=== PATIENT | male | born 1970 | race African-American/Black ===

== ENCOUNTER 2019-08-08 06:27 | Observation (INO) | payer SELFPAY ==
[2019-08-08 06:55] LABS: Absolute Lymphocytes (CBC) 1.7 K/uL (0.7-4.9); Basophils % 0.5 % (0-1.3); Hematocrit 40.7 % (39.6-49.0); Lymphocytes % 27.9 % (15.3-44.8); MPV 7.2 fL (7.6-11.3); RBC Red Blood Cell Count 4.59 M/uL (4.33-5.43)
[2019-08-08 06:58] LABS: Protime INR 0.97
[2019-08-08] MEDS ORDERED: ASPIRIN 81 MG CHEWABLE TABLET ONE (07:09)
[2019-08-08 07:41] LABS: ALT/SGPT 17 U/L (12-78); AST/SGOT 12 U/L (15-37); Albumin 3.8 g/dL (3.4-5.0); Alkaline Phosphatase 66 U/L (45-117); BUN Blood Urea Nitrogen 19 mg/dL (7-18); Bicarbonate 27 mmol/L (21-32); Bilirubin Direct 0.2 mg/dL (0-0.2); Glucose Level 100 mg/dL (74-106); Magnesium 2.1 mg/dL (1.8-2.4); NT PRO-BNP 58 pg/mL (<125); Potassium 3.6 mmol/L (3.5-5.1); Protein, Total 7.8 g/dL (6.4-8.2); Sodium Level 141 mmol/L (136-145); Troponin (Emerg Dept Use Only) < 0.02 ng/mL (0.0-0.045)
--- NOTE | 2019-08-08 08:29 | ER ---
Nurse's Notes [facility] Name: Martinez Bazzi Age: 48 yrs Sex: Male : 1970 Arrival Date: 08/08/2019 Time: 06:30 Bed 14 Private MD: Diagnosis: Chest pain, unspecified Presentation: 08/07 06:42 Chief complaint: Patient states: Dull chest pain that began on Sunday, some radiating lp1 to left shoulder; States able to continue ADL's but dull pain that comes and goes, radiating to back; States this morning chest pain woke him from sleep about 0330. Coronavirus screen: Patient denies fever greater than 100.4F, cough, shortness of breath, or difficulty breathing. Proceed with normal triage process. Ebola Screen: No symptoms or risks identified at this time. Initial Sepsis Screen: Does the patient meet any 2 criteria? No. Patient's initial sepsis screen is negative. Does the patient have a suspected source of infection? No. Patient's initial sepsis screen is negative. Risk Assessment: Do you want to hurt yourself or someone else? Patient reports no desire to harm self or others. Onset of symptoms was August 03, 2019. 06:42 Method Of Arrival: Ambulatory lp1 06:42 Acuity: BHARGAVI 3 lp1 Historical: - Allergies: 06:48 No Known Allergies; lp1 - Home Meds: 06:48 None [Active]; lp1 - PMHx: 06:48 Heart Murmur; lp1 - PSHx: 06:48 None; lp1 - Immunization history:: Adult Immunizations up to date. - Social history:: Smoking status: Patient reports the use of cigarette tobacco products, smokes one-half pack cigarettes per day, Patient uses alcohol, on a daily basis. States about [address], marijuana. Screenin:48 Abuse screen: Denies threats or abuse. Denies injuries from another. Nutritional lp1 screening: No deficits noted. Tuberculosis screening: No symptoms or risk factors identified. Fall Risk None identified. Assessment: 06:40 General: Appears in no apparent distress. uncomfortable, Behavior is calm, cooperative, jb4 appropriate for age. Pain: Complains of pain in chest Pain does not radiate. Pain currently is 4 out of 10 on a pain scale. Quality of pain is described as dull, Pain began 1 day ago. Is continuous. Neuro: Level of Consciousness is awake, alert, obeys commands, Oriented to person, place, time, situation. Cardiovascular: Patient's skin is warm and dry. Rhythm is sinus rhythm. Respiratory: Airway is patent Respiratory effort is even, unlabored, Respiratory pattern is regular, symmetrical. GI: No signs and/or symptoms were reported involving the gastrointestinal system. : No signs and/or symptoms were reported regarding the genitourinary system. EENT: No signs and/or symptoms were reported regarding the EENT system. Derm: Skin is intact, Skin is dry, Skin is normal, Skin temperature is warm. Musculoskeletal: Circulation, motion, and sensation intact. Range of motion: intact in all extremities. 07:11 Reassessment: Patient appears in no apparent distress at this time. Patient and/or ph family updated on plan of care and expected duration. Pain level reassessed. Patient is alert, oriented x 3, equal unlabored respirations, skin warm/dry/pink. Pt rates pain 4/10 at this time, denies SOB or nausea, states that he does not wantpain medication at this time, awaiting lab and CXR results, will continue to monitor. 08:30 Reassessment: Patient appears in no apparent distress at this time. No changes from ph previously documented assessment. Patient and/or family updated on plan of care and expected duration. Pain level reassessed. Patient is alert, oriented x 3, equal unlabored respirations, skin warm/dry/pink. 11:02 Reassessment: Patient appears in no apparent distress at this time. No changes from ph previously documented assessment. Patient and/or family updated on plan of care and expected duration. Pain level reassessed. Patient is alert, oriented x 3, equal unlabored respirations, skin warm/dry/pink. Report called to second floor. Vital Signs: 06:40 Temp 98.7(O); jb4 06:42 BP 160 / 106; Pulse 70; Resp 18; Pulse Ox 100% on R/A; Weight 104.33 kg; Height 6 ft. 3 lp1 in. (190.50 cm); Pain 5/10; 07:11 BP 138 / 80; Pulse 67; Resp 18; Pulse Ox 100% on R/A; Pain 4/10; ph 08:17 BP 134 / 88; Pulse 56; Resp 18; Pulse Ox 99% on R/A; ph 09:00 BP 129 / 84; Pulse 56; Resp 16; Pulse Ox 100% on R/A; ph 10:00 BP 138 / 82; Pulse 58; Resp 18; Pulse Ox 100% on R/A; ph 11:00 BP 132 / 78; Pulse 54; Resp 18; Pulse Ox 100% on R/A; ph 06:42 Body Mass Index 28.75 (104.33 kg, 190.50 cm) lp1 Vitals: 08:17 Cardiac Rhythm Assessment Sinus mallika. ph ED Course: 06:30 Patient arrived in ED. ds1 06:31 Yves Carl PA is PHCP. cp 06:31 Bobby Espinal MD is Attending Physician. cp 06:40 EKG done, by ED staff, reviewed by Yves MACHADO. rr5 06:41 quality assurance monitor body on. Pulse ox on. NIBP on. rr5 06:45 Initial lab(s) drawn, by me, sent to lab. Inserted saline lock: 18 gauge in right jb4 wrist, using aseptic technique. Blood collected. Patient maintains SpO2 saturation greater than 95% on room air. 06:47 Triage completed. lp1 06:48 Arm band placed on. lp1 06:48 Patient has correct armband on for positive identification. lp1 06:54 XRAY Chest (1 view) In Process Unspecified. EDMS 07:10 Hoa Reveles, RN is Primary Nurse. ph 07:23 Damien Day MD is Attending Physician. cp 08:27 Stacey Chavarria MD is Hospitalizing Provider. cp 09:39 Repeat lab(s) drawn. by me, sent to lab. dh3 11:01 No provider procedures requiring assistance completed. Patient admitted, IV remains in ph place. Administered Medications: 07:12 Drug: Aspirin Chewable Tablet 324 mg Route: PO; jb4 11:03 Follow up: Response: No adverse reaction ph 11:04 Not Given (Patient Refused): morphine 2 mg IVP once; RASS on ADMIN: Combtv4, Very ph Agttd3, Agttd2, Rstlss1, AlertClm0, Drwsy-1, Lt Sdtn-2, Mod Sdtn-3, Dp Sdtn-4, UnArsble-5 11:06 Not Given (Patient Refused): morphine 2 mg IM once; RASS on ADMIN: Combtv4, Very ph Agttd3, Agttd2, Rstlss1, AlertClm0, Drwsy-1, Lt Sdtn-2, Mod Sdtn-3, Dp Sdtn-4, UnArsble-5 Outcome: 08:27 Decision to Hospitalize by Provider. cp 11:01 Admitted to Tele accompanied by tech, room 208, with chart. ph 11:01 Condition: stable 11:16 Patient left the ED. ph Signatures: Dispatcher [employer] EDPR Moriah Clarke ds1 Johanny Reina, RN RN lp1 Hoa Reveles, RN RN ph Yves Carl PA PA cp Bryson, James, ELSIE RN jb4 Diamond Meredith 3 Kb Robertson, RN RN rr5
--- NOTE | 2019-08-08 08:29 | EDPHYS ---
Physician Documentation [facility] Name: Martinez Bazzi Age: 48 yrs Sex: Male : 1970 Arrival Date: 08/08/2019 Time: 06:30 Bed 14 Private MD: ED Physician Damien Day HPI: 08/07 06:45 This 48 yrs old Black Male presents to ER via Unassigned with complaints of Chest Pain. cp 06:46 The patient or guardian reports chest pain that is located primarily in the substernal cp area, epigastric area. Onset: 4 day(s) ago, and became persistent last night. The pain does not radiate. 06:46 The chest pain is described as dull. cp 06:46 Associated signs and symptoms: Pertinent negatives: abdominal pain, cough, diaphoresis, cp lower extremity pain, lower extremity swelling, palpitations, recent travel, shortness of breath. Duration: The patient or guardian reports multiple episodes, that wax and wane. Historical: - Allergies: 06:48 No Known Allergies; lp1 - Home Meds: 06:48 None [Active]; lp1 - PMHx: 06:48 Heart Murmur; lp1 - PSHx: 06:48 None; lp1 - Immunization history:: Adult Immunizations up to date. - Social history:: Smoking status: Patient reports the use of cigarette tobacco products, smokes one-half pack cigarettes per day, Patient uses alcohol, on a daily basis. States about [address] drugs, marijuana. ROS: 06:50 Constitutional: Negative for body aches, chills, fever, poor PO intake. cp 06:50 Eyes: Negative for injury, pain, redness, and discharge. cp 06:50 ENT: Negative for drainage from ear(s), ear pain, sore throat, difficulty swallowing, cp difficulty handling secretions. 06:50 Cardiovascular: Positive for chest pain, Negative for edema, palpitations. 06:50 Respiratory: Negative for cough, shortness of breath, wheezing. 06:50 Abdomen/GI: Negative for abdominal pain, nausea, vomiting, and diarrhea. 06:50 Back: Negative for radiated pain. 06:50 Skin: Negative for rash. 06:50 Neuro: Negative for altered mental status, headache, weakness. 06:50 All other systems are negative. Exam: 06:47 ECG was reviewed by the Attending Physician. cp 06:55 Constitutional: The patient appears in no acute distress, alert, awake, cp non-diaphoretic, non-toxic, well developed, well nourished. 06:55 Head/Face: Normocephalic, atraumatic. cp 06:55 Eyes: Periorbital structures: appear normal, Conjunctiva: normal, no exudate, no injection, Sclera: no appreciated abnormality, Lids and lashes: appear normal, bilaterally. 06:55 ENT: External ear(s): are unremarkable, Nose: is normal, Mouth: is normal, Posterior pharynx: is normal, airway is patent, no erythema, no exudate. 06:55 Neck: ROM/movement: is normal, is supple, without pain, no range of motions limitations, no nuchal rigidity. 06:55 Chest/axilla: Inspection: normal, Palpation: is normal, no crepitus, no tenderness. 06:55 Cardiovascular: Rate: normal, Rhythm: regular, Heart sounds: murmur, not appreciated, Edema: is not appreciated, JVD: is not appreciated. 06:55 Respiratory: the patient does not display signs of respiratory distress, Respirations: normal, no use of accessory muscles, no retractions, labored breathing, is not present, Breath sounds: are clear throughout, no decreased breath sounds, no stridor, no wheezing. 06:55 Abdomen/GI: Inspection: abdomen appears normal, Palpation: abdomen is soft and non-tender, in all quadrants. 06:55 Skin: no rash present. 06:55 Neuro: Orientation: to person, place \T\ time. Mentation: is normal, Motor: moves all fours, strength is normal, Sensation: is normal. Vital Signs: 06:40 Temp 98.7(O); jb4 06:42 BP 160 / 106; Pulse 70; Resp 18; Pulse Ox 100% on R/A; Weight 104.33 kg; Height 6 ft. 3 lp1 in. (190.50 cm); Pain 5/10; 07:11 BP 138 / 80; Pulse 67; Resp 18; Pulse Ox 100% on R/A; Pain 4/10; ph 08:17 BP 134 / 88; Pulse 56; Resp 18; Pulse Ox 99% on R/A; ph 09:00 BP 129 / 84; Pulse 56; Resp 16; Pulse Ox 100% on R/A; ph 10:00 BP 138 / 82; Pulse 58; Resp 18; Pulse Ox 100% on R/A; ph 11:00 BP 132 / 78; Pulse 54; Resp 18; Pulse Ox 100% on R/A; ph 06:42 Body Mass Index 28.75 (104.33 kg, 190.50 cm) lp1 MDM: 06:39 Patient medically screened. cp 07:00 Differential diagnosis: abnormal EKG, acute myocardial infarction, anxiety, pulmonary cp embolus, stable angina, thoracic aortic disection, unstable angina. 08:25 Physician consultation: Stacey Chavarria MD was called at 08:20, was contacted at 08:20, geovany regarding admission, to the telemetry unit. patient's condition. 08:30 Data reviewed: vital signs, nurses notes, lab test result(s), EKG, radiologic studies, cp plain films, I have discussed the patient's presentation/case with the attending Emergency Department Physician;. 08:30 The patient was given aspirin in the Emergency Department. Test interpretation: by ED cp physician or midlevel provider: ECG. Counseling: I had a detailed discussion with the patient and/or guardian regarding: the historical points, exam findings, and any diagnostic results supporting the discharge/admit diagnosis, lab results, radiology results, the need for further work-up and treatment in the hospital. Response to treatment: the patient's symptoms have markedly improved after treatment. 08/07 06:43 Order name: Basic Metabolic Panel; Complete Time: 08:00 08/07 08:00 Interpretation: Normal except: CL 108; BUN 19. 08/07 06:43 Order name: CBC with Diff; Complete Time: 07:05 cp 08/07 07:05 Interpretation: Normal except: MPV 7.2; MN% 14.9. cp 08/07 06:43 Order name: LFT's; Complete Time: 08:00 cp 08/07 08:00 Interpretation: Normal except: AST 12; GLOB 4.0; A/G 1.0. cp 08/07 06:43 Order name: Magnesium; Complete Time: 08:00 cp 08/07 06:43 Order name: NT PRO-BNP; Complete Time: 08:00 08/07 06:43 Order name: PT-INR; Complete Time: 07:05 cp 08/07 06:43 Order name: Troponin (emerg Dept Use Only); Complete Time: 08:00 cp 08/07 08:00 Interpretation: Within normal limits: TROPED < 0.02. cp 08/07 08:51 Order name: CBC with Automated Diff EDNC 08/07 08:51 Order name: CBC with Automated Diff EDNC 08/07 08:51 Order name: Comprehensive Metabolic Panel EDNC 08/07 08:51 Order name: Comprehensive Metabolic Panel EDNC 08/07 08:51 Order name: Lipid Profile EDNC 08/07 08:51 Order name: Lipid Profile EDNC 08/07 08:51 Order name: Troponin I EDNC 08/07 06:43 Order name: XRAY Chest (1 view); Complete Time: 08:52 cp 08/07 08:52 Interpretation: Report review. 08/07 06:43 Order name: EKG; Complete Time: 06:45 cp 08/07 06:43 Order name: Cardiac monitoring; Complete Time: 06:51 cp 08/07 06:43 Order name: EKG - Nurse/Tech; Complete Time: 06:51 cp 08/07 06:43 Order name: IV Saline Lock; Complete Time: 06:51 cp 08/07 06:43 Order name: Labs collected and sent; Complete Time: 06:51 cp 08/07 06:43 Order name: O2 Per Protocol; Complete Time: 06:51 cp 08/07 06:43 Order name: O2 Sat Monitoring; Complete Time: 06:51 cp 08/07 07:05 Order name: Blood Pressure Recheck: bilateral upper extremity; Complete Time: 07:10 cp 08/07 08:51 Order name: CONS Pharmacy Consult EDNC 08/07 08:51 Order name: Troponin I EDNC 08/07 08:51 Order name: Troponin I EDNC 08/07 09:43 Order name: Diet Heart Healthy; Complete Time: 09:43 dh3 EC:47 Rate is 66 beats/min. Rhythm is regular. TN interval is normal. QRS interval is normal. cp QT interval is normal. Interpreted by me. Reviewed by me. Administered Medications: 07:12 Drug: Aspirin Chewable Tablet 324 mg Route: PO; jb4 11:03 Follow up: Response: No adverse reaction ph 11:04 Not Given (Patient Refused): morphine 2 mg IVP once; RASS on ADMIN: Combtv4, Very ph Agttd3, Agttd2, Rstlss1, AlertClm0, Drwsy-1, Lt Sdtn-2, Mod Sdtn-3, Dp Sdtn-4, UnArsble-5 11:06 Not Given (Patient Refused): morphine 2 mg IM once; RASS on ADMIN: Combtv4, Very ph Agttd3, Agttd2, Rstlss1, AlertClm0, Drwsy-1, Lt Sdtn-2, Mod Sdtn-3, Dp Sdtn-4, UnArsble-5 Disposition: 18:40 Co-signature as Attending Physician, Damien Day MD I agree with the assessment and kdr plan of care. Disposition: 08/08/19 08:27 Hospitalization ordered by Stacey Chavarria for Observation. Preliminary diagnosis is Chest pain, unspecified. - Bed requested for Telemetry/MedSurg (observation). - Status is Observation. ph - Condition is Stable. - Problem is new. - Symptoms have improved. Signatures: Dispatcher [employer] EDNC Liza Jay RN RN Damien Ramos MD MD kdr Johanny Reina RN RN lp1 Hoa Reveles RN RN Yves Ashley PA PA cp Bryson, James, RN RN jb4 Sheba Hernandez Corrections: (The following items were deleted from the chart) 08:30 08:27 Hospitalization Ordered by Stacey Chavarria MD for Observation. Preliminary eb diagnosis is Chest pain, unspecified. Bed requested for Telemetry/MedSurg (observation). Status is Observation. Condition is Stable. Problem is new. Symptoms have improved. cp 09:25 08:30 08/08/2019 08:27 Hospitalization Ordered by Stacey Chavarria MD for Observation. dw Preliminary diagnosis is Chest pain, unspecified. Bed requested for Telemetry/MedSurg (observation). Status is Observation. Condition is Stable. Problem is new. Symptoms have improved. eb 11:16 09:25 08/08/2019 08:27 Hospitalization Ordered by Stacey Chavarria MD for Observation. ph Preliminary diagnosis is Chest pain, unspecified. Bed requested for Telemetry/MedSurg (observation). Status is Observation. Condition is Stable. Problem is new. Symptoms have improved. dw
--- NOTE | 2019-08-08 08:32 | RAD REPORT ---
EXAM DESCRIPTION: RAD - Chest Single View - 08/08/2019 6:54 am CLINICAL HISTORY: CHEST PAIN Chest pain. COMPARISON: Chest Single View dated 05/18/2016 FINDINGS: Portable technique limits examination quality. The lungs are grossly clear. The heart is normal in size. No displaced fractures. IMPRESSION: No acute intrathoracic process suspected.
[2019-08-08] MEDS ORDERED: HYDRALAZINE HCL 20 MG/ML VIAL IV PRN (08:49)
--- NOTE | 2019-08-08 11:20 | EKG ---
Test Date: 2019-08-08 Test Time: 06:39:16 Promotions Team Leader: RR MEASUREMENT RESULTS: Intervals: Rate: 66 WV: 186 QRSD: 90 QT: 410 QTc: 429 [place]: P: 62 WV: 186 QRS: 63 T: -26 INTERPRETIVE STATEMENTS: Normal sinus rhythm T wave abnormality, consider inferior ischemia Abnormal ECG Compared to ECG 05/18/2016 14:59:35 T-wave abnormality now present Sinus bradycardia no longer present ST (T wave) deviation no longer present Possible ischemia still present Electronically Signed On 08-08-19 11:20:09 CDT by John Solis
--- NOTE | 2019-08-08 11:30 | P.HP ---
Certification for Inpatient Patient admitted to: Observation Practitioner: I am a practitioner with admitting privileges, knowledge of patient current condition, hospital course, and medical plan of care. Services: Services provided to patient in accordance with Admission requirements found in Title 42 Section 412.3 of the Code of Federal Regulations Patient History Date of Service: 08/08/19 Reason for admission: Chest pain History of Present Illness: Mr Bazzi is 48 y/o-male with no significant medical history presented to the ER complaints of 5 days history of chest pain started at rest. Patient's chest pain has been constant, and described as substernal, constant and non radiating. He felt like he swallowed a piece of glass in May and it lodged in the epigastric area. At the onset of this pain, he related the pain to possibly related to ingested glass. He denies nausea, vomiting, heart burn/ indigestion. He denies any sob, diaphoresis or lightheadedness. He presented to the ER as pain intensity increased from 4->7 out of 10. He uses cocaine, last use was 3 months ago. Allergies No Known Allergies Allergy (Unverified 05/18/16 21:30) Home Medications: NK [No Home Meds] 05/18/16 - Past Medical/Surgical History Diabetic: No -: heart murmur -: Nasal surgery - Social History Smoking Status: Current every day smoker CD- Drugs: Yes Caffeine use: Yes Review of Systems General: Unremarkable Eyes: Unremarkable ENT: Unremarkable Respiratory: Unremarkable Cardiovascular: Chest Pain Gastrointestinal: Unremarkable Genitourinary: Unremarkable Integumentary: Unremarkable Neurological: Unremarkable Physical Examination - Vital Signs Temperature: 98.7 F Blood Pressure: 160/106 Pulse: 76 Respirations: 16 Pulse Ox (%): 99 - Physical Exam General: Alert, In no apparent distress HEENT: Atraumatic, PERRLA, Mucous membr. moist/pink, EOMI, Sclerae nonicteric Neck: Supple, 2+ carotid pulse no bruit, No LAD, Without JVD or thyroid abnormality Respiratory: Clear to auscultation bilaterally, Normal air movement Cardiovascular: Regular rate/rhythm, Normal S1 S2 Gastrointestinal: Normal bowel sounds, No tenderness Musculoskeletal: No tenderness Integumentary: No rashes Neurological: Normal gait, Normal speech, Normal strength at 5/5 x4 extr, Normal tone, Normal affect Lymphatics: No axilla or inguinal lymphadenopathy - Studies Laboratory Data (last 24 hrs) 08/08/19 06:40: PT 11.5, INR 0.97 08/08/19 06:40: WBC 5.9, Hgb 13.9, Hct 40.7, Plt Count 269 08/08/19 06:40: Sodium 141, Potassium 3.6, BUN 19 H, Creatinine 1.07, Glucose 100, Magnesium 2.1, Total Bilirubin 1.0, AST 12 L, ALT 17, Alkaline Phosphatase 66 Assessment and Plan - Plan Mr. Bazzi is 48 y/o male pw chest pain. # Chest pain- r/o ACS. Trop X1 neg. EKG with T-wave abnormality. Bradycardia on telemetry. Chest x-ray is unremarkable. Risk factors noted. -will trend troponin. -aspirin and lipid panel. -Check UDS, history of cocaine abuse -hypertensive on presentation, which may be contributing to chest pain. -consult gauger chief delivery for assistance. Echocardiogram. # Hypertensive urgency-noted on presentation. Patient denies any prior history of hypertension. -blood pressure is currently improved. -avoid beta-nasim, cocaine abuse. -monitor blood pressure and consider starting antihypertensive upon discharge. #Tobacco and cocaine abuse-ordered UDS. -smoking cessation strongly advised DVT prophylaxis-SCD patient is full code. Disposition-observation admission. Discharge Plan: Home Plan to discharge in: 24 Hours - Advance Directives Does patient have a Living Will: No Does patient have a Durable POA for Healthcare: No - Code Status/Comfort Care Code Status Assessed: Yes Code Status: Full Code
[2019-08-08 11:37] VITALS: BMI 28.3
[2019-08-08 11:42] VITALS: O2SAT 100
[2019-08-08 12:31] LABS: Barbiturates NEGATIVE (NEGATIVE); Benzodiazepines NEGATIVE (NEGATIVE); Cocaine NEGATIVE (NEGATIVE); METHAMPHETAM NEGATIVE (NEGATIVE); Methadone NEGATIVE (NEGATIVE); Opiates NEGATIVE (NEGATIVE); Phencyclidine NEGATIVE (NEGATIVE); THC Cannibis NEGATIVE (NEGATIVE)
[2019-08-08] MEDS ORDERED: INFLUENZA VACCINE (for 3y+) 0.5 ML DOSE IMVAC ONE (13:00)
--- NOTE | 2019-08-08 16:45 | CON ---
Date of Consultation: 08/08/2019 The patient was admitted on . He was seen on 08/08/2019. Reason For Consultation: Chest pain. History Of Present Illness: Mr. Bazzi is a 48-year-old black male, has no significant past cardiac hi story, except for heart murmur. He was seen here in 2017 for orthostatic hypotension where he actual ly lacerated his tongue. He was seen by Dr. Masoud powell. He had an echocardiogram at that time kelly t was normal. He has not been to the hospital since. He comes in with atypical chest pain. No naus ea, vomiting, diaphoresis, PND, orthopnea, pedal edema, palpitations, or syncope. Past Medical History: As stated above. Allergies: NONE. Review of Systems: Negative. Social History: Negative. Family History: Negative. Medications: At home are none. Physical Examination: General: He was , otherwise in no acute distress, sinus rhythm. HEENT: Negative. Neck: Supple. No bruit. Chest: Clear to auscultation and percussion. Cardiac: Exam revealed a regular rhythm and rate. No murmurs, gallops, or rubs. Abdomen: Benign. Extremities: No clubbing, cyanosis, or edema. Diagnostic Data: Chest x-ray was negative. Troponin was negative. EKG showed anterior ischemia, al though this could be LVH as well. Impression And Plan: Atypical chest pain, abnormal EKG. Normal echocardiogram 3 years ago. Negativ e troponin. The patient can certainly go home on a low-dose beta-nasim and a baby aspirin and a pr oton pump inhibitor and we will see how he does with that and it would be good for him to have an out patient stress test sometimes. FRANCIE/PHAN Voice ID: [id number] Report ID: [id number]
[2019-08-08 17:47] VITALS: BP 124/73; TEMP 97.8
--- NOTE | 2019-08-09 08:18 | P.DS ---
Admission Date: 08/08/19 Discharge Date: 08/08/19 Disposition: ROUTINE DISCHARGE Discharge Condition: FAIR Reason for Admission: Chest pain Consultations: Cardiology Brief History of Present Illness: Admission diagnosis-chest pain EKG abnormality Hypertensive urgency Discharge diagnosis-chest pain ACS ruled out Possible GERD. Hospital Course: Mr. Bazzi is 48-year-old male with no significant medical history presented to the emergency room with chest pain. Evaluation including serial troponin ruled out ACS. EKG demonstrated nonspecific T-wave inversion. Shirt Turner was consulted and further evaluation with echocardiogram was unremarkable. Patient had episodes of bradycardia on telemetry therefore avoid beta-nasim was held. TSH was unremarkable. He admitted to history of cocaine; however, denies any recent use. Chest pain was atypical and a trial of proton pump inhibitor has been initiated. He remained stable for discharge. Vital Signs/Physical Exam: Temp Pulse Resp BP Pulse Ox 97.8 F 54 16 124/73 99 08/08/19 16:00 08/08/19 16:00 08/08/19 16:00 08/08/19 16:00 08/08/19 16:00 General: Alert HEENT: Atraumatic, PERRLA, EOMI Neck: Supple, JVD not distended Respiratory: Clear to auscultation bilaterally, Normal air movement Cardiovascular: Regular rate/rhythm, Normal S1 S2 Gastrointestinal: Normal bowel sounds, No tenderness Musculoskeletal: No tenderness Integumentary: No rashes Neurological: Normal speech, Normal tone, Normal affect Lymphatics: No axilla or inguinal lymphadenopathy Laboratory Data at Discharge: WBC 5.9 K/uL (4.3-10.9) 08/08/19 06:40 Hgb 13.9 g/dL (13.6-17.9) 08/08/19 06:40 Hct 40.7 % (39.6-49.0) 08/08/19 06:40 Plt Count 269 K/uL (152-406) 08/08/19 06:40 PT 11.5 SECONDS (9.5-12.5) 08/08/19 06:40 INR 0.97 08/08/19 06:40 Sodium 141 mmol/L (136-145) 08/08/19 06:40 Potassium 3.6 mmol/L (3.5-5.1) 08/08/19 06:40 BUN 19 mg/dL (7-18) H 08/08/19 06:40 Creatinine 1.07 mg/dL (0.55-1.3) 08/08/19 06:40 Glucose 100 mg/dL (74-106) 08/08/19 06:40 Magnesium 2.1 mg/dL (1.8-2.4) 08/08/19 06:40 Total Bilirubin 1.0 mg/dL (0.2-1.0) 08/08/19 06:40 AST 12 U/L (15-37) L 08/08/19 06:40 ALT 17 U/L (12-78) 08/08/19 06:40 Alkaline Phosphatase 66 U/L (45-117) 08/08/19 06:40 Troponin I < 0.02 ng/mL (0.0-0.045) 08/08/19 13:43 Home Medications: Aspirin [Aspirin EC 81 MG] 81 mg PO DAILY #30 tablet. 08/08/19 Nitroglycerin [Nitrostat] 0.3 mg SL PRN PRN #25 tab.subl MDD every 15 min prn x 3 doses. 08/08/19 New Medications: Aspirin [Aspirin EC 81 MG] 81 mg PO DAILY #30 tablet. Nitroglycerin [Nitrostat] 0.3 mg SL PRN PRN #25 tab.subl MDD every 15 min prn x 3 doses. PRN Reason: Chest pain Diet: AHA Activity: Ad jurgen Followup: John Solis MD [ACTIVE - CAN ADMIT] - 1 Week
[2019-08-09] MEDS ORDERED: ASPIRIN EC 81 MG TAB PO SCH (09:00)
--- NOTE | 2019-08-11 08:04 | ECHO ---
HEIGHT: 6 ft 3 in WEIGHT: 226 lb 11.2 oz DATE OF STUDY: 08/08/[address]: Stacey Chavarria 2-DIMENSIONAL: YES M.MODE: YES DOPPLER: YES COLOR FLOW: YES TDS: NO PORTABLE: NO DEFINITY: NO BUBBLE STUDY: NO DIAGNOSIS: TRANSIENT ISCHEMIC ATTACK CARDIAC HISTORY: CATHERIZATION: NO SURGERY: NO PROSTHETIC VALVE: NO PACEMAKER: NO MEASUREMENTS (cm) DIASTOLIC (NORMALS) SYSTOLIC (NORMALS) IVSd 1.0 (0.6-1.2) LA Diam 2.7 (1.9-4.0) LVEF 74% LVIDd 4.8 (3.5-5.7) LVIDs 2.7 (2.0-3.5) %FS 43% LVPWd 1.2 (0.6-1.2) Ao Diam 3.2 (2.0-3.7) 2 DIMENSIONAL ASSESSMENT: RIGHT ATRIUM: NORMAL LEFT ATRIUM: NORMAL RIGHT VENTRICLE: NORMAL LEFT VENTRICLE: NORMAL TRICUSPID VALVE: NORMAL MITRAL VALVE: NORMAL PULMONIC VALVE: NORMAL AORTIC VALVE: NORMAL PERICARDIAL EFFUSION: NONE AORTIC ROOT: NORMAL LEFT VENTRICULAR WALL MOTION: NORMAL DOPPLER/COLOR FLOW: NORMAL COMMENTS: NORMAL 2D ECHOCARDIOGRAM WITH DOPPLER. NO WALL MOTION ABNORMALITY. NO EFFUSION. TECHNOLOGIST: Zurdo PADILLA
== END 2019-08-08 18:13 | disposition home or self-care (01) ==
LOC: ER 06:27 → ERHOLD 08:48 → 2ND 11:04
PROVIDERS: ADMIT Hospitalist; ATTEND Hospitalist
DX: R07.89 Other chest pain (principal); I16.0 Hypertensive urgency; F17.210 Nicotine dependence, cigarettes, uncomplicated; R94.31 Abnormal electrocardiogram [ECG] [EKG]
CPT/HCPCS: 36415; 71045; 80048; 80076; 80307; 83735; 83880; 84443; 84484; 85025; 85610; 90471; 93005; 93306; 99285; G0378; Q2035